=== PATIENT | female | born 1940 | race Caucasian/White ===

== ENCOUNTER 2017-01-24 06:36 | Day surgery (SDC) | payer MEDICARE, BC ==
[2017-01-24] MEDS ORDERED: Lidocaine 1% with EPINEPHrine 1:100,000 50 ML MDV ONE (06:47)
[2017-01-24] MEDS ORDERED: Bupivacaine 0.5% 50 ML MDV ONE (06:47)
[2017-01-24] MEDS ORDERED: metroNIDAZOLE/Normal Saline 500 MG in Premix Bag 1 BAG IV ONE (07:30)
[2017-01-24] MEDS: Sodium Chloride 0.9% 1,000 ML IV SCH ×3 (07:35→18:46)
[2017-01-24] MEDS ORDERED: Rocuronium 50 MG/5 ML Vial ONE (07:38)
[2017-01-24] MEDS ORDERED: Propofol 200 MG/20 ML SDV ONE (07:38)
[2017-01-24] MEDS ORDERED: Dexamethasone 4 MG/ML SDV ONE (07:38)
[2017-01-24] MEDS ORDERED: Neostigmine Methylsulfate 1 MG/ML 5 ML Syringe ONE (07:38)
[2017-01-24] MEDS ORDERED: Succinylcholine/Normal Saline 200 MG/10 ML Syringe ONE (07:38)
[2017-01-24] MEDS ORDERED: fentaNYL 250 MCG/5 ML SDV ONE (07:38)
[2017-01-24] MEDS ORDERED: Ondansetron 4 MG/2 ML SDV ONE (07:38)
[2017-01-24] MEDS: ceFAZolin 2 GM in Premix Bag 1 BAG IV ONE ×2 (08:05→11:25)
[2017-01-24] MEDS ORDERED: Benzocaine/Cetylpyridinium/Menthol Lozenge MUCMEM PRN (09:24)
[2017-01-24] MEDS ORDERED: diphenhydrAMINE 50 MG/ML SDV IVPUSH PRN (09:24)
[2017-01-24] MEDS ORDERED: Docusate Sodium 100 MG Cap PO PRN (09:24)
[2017-01-24] MEDS ORDERED: Zolpidem 5 MG Tab PO PRN (09:24)
[2017-01-24] MEDS ORDERED: Bisacodyl 5 MG Tab PO PRN (09:24)
[2017-01-24] MEDS ORDERED: hydrOXYzine HCl 50 MG/ML SDV IM ONE ×2 (09:45→09:50)
[2017-01-24] MEDS ORDERED: fentaNYL 100 MCG/2 ML SDV IVPUSH ONE ×2 (10:05→10:30)
[2017-01-24] MEDS ORDERED: Acetaminophen 1,000 MG in Premix Bag 1 BAG IV ONE (10:30)
[2017-01-24] MEDS ORDERED: fentaNYL 100 MCG/2 ML SDV IVPUSH PRN (10:30)
--- NOTE | 2017-01-24 11:01 | OR ---
DATE OF PROCEDURE: 01/24/2017 PROCEDURE: Laparoscopic cholecystectomy. PREOPERATIVE DIAGNOSIS: Acute and chronic cholecystitis/cholelithiasis. POSTOPERATIVE DIAGNOSIS: Acute and chronic cholecystitis/cholelithiasis. COMPLICATIONS: None. MED SPA MANAGER: None. ANESTHESIA: General/local. INDICATIONS: A 76-year-old female with right upper quadrant abdominal pain associated with nausea. Risks, benefits, alternatives, and limitations including, but not limited to infection, bleeding, and perforation of abdominal structures were explained to the patient. We also discussed cystic duct leaks, common bile duct injuries, and the possibility of open surgery. The patient understands these risks and wished to proceed. PROCEDURE IN DETAIL: The patient was placed in supine position. The abdomen was prepped and draped. A supraumbilical curvilinear incision was made in the midline and abdomen was entered without abnormality. After the drop test was performed, this was reviewed, during insufflation and entering with an Optiview trocar. No evidence of abnormalities were noted. Additional 10 and two 5 mm ports were entered under direct visualization. The gallbladder was retracted cephalad, and the infundibulum retracted inferolaterally. A "clear view" of the gallbladder would eventually be obtained for the single pulsatile structure in the gallbladder and a single nonpulsatile structure in the gallbladder. The duct and artery were clipped and subsequently transected. Due to the patient's slightly larger than clip size cystic duct, this was clipped additionally x2. Of note, at the end of the case, this was inspected and no evidence of bile leak was noted The remaining one-third of the gallbladder was removed off the gallbladder bed without difficulty. This was delivered via muscle-spreading technique into the upper port. The liver bed was inspected for bleeding, which was minimum and was controlled with electrocautery. The abdomen was reinspected for abnormality, which there was none. The air was removed. The wounds were closed with 3-0 Vicryl and 4-0 Vicryl interrupted running fashion. Dermabond was applied. The patient tolerated the procedure well. Hiren Cruz MD /[id number]
[2017-01-24] MEDS: Acetaminophen/HYDROcodone 325-10 MG Tab PO PRN ×2 (14:26→20:02)
[2017-01-24] MEDS ORDERED: Ondansetron 4 MG Tab.DIS PO PRN (18:21)
[2017-01-25] MEDS: Acetaminophen/HYDROcodone 325-10 MG Tab PO PRN ×2 (02:44→06:39)
[2017-01-25 07:07] VITALS: BP 106/64
--- NOTE | 2017-02-05 08:06 | DISCH ---
DISCHARGE DIAGNOSIS: Status post laparoscopic cholecystectomy. HOSPITAL COURSE: A pleasant 76-year-old female, who underwent uneventful laparoscopic cholecystectomy. Prior to discharge, her pain was well controlled. She had no nausea, vomiting, shortness of breath, or chest pain. FOLLOWUP: Follow up with Surgery in 7 to 14 days. DISCHARGE MEDICATIONS: Please see MAR. Additional consultations during this hospitalization: None.
== END 2017-01-24 21:21 | disposition home or self-care (01) ==
LOC: JP.SDS 06:36 → JP.MS 11:22 → UNDOADMOB 11:22 → JP.SDS 21:21 → UNDODISOB 01-25 09:25
PROVIDERS: ATTEND Surgery
DX: K80.10 Calculus of gallbladder with chronic cholecystitis without obstruction (principal); I10 Essential (primary) hypertension; J44.9 Chronic obstructive pulmonary disease, unspecified; E03.9 Hypothyroidism, unspecified; E78.5 Hyperlipidemia, unspecified; Z88.8 Allergy status to other drugs, medicaments and biological substances; E55.9 Vitamin D deficiency, unspecified; Z98.84 Bariatric surgery status; Z95.5 Presence of coronary angioplasty implant and graft; Z87.891 Personal history of nicotine dependence
CPT/HCPCS: 47562; 88304; A9270; J0131; J0690; J1100; J1200; J2405; J2704; J3010; J3410; J7040; 36415; 80053; 85025

== ENCOUNTER 2017-02-26 07:24 | Emergency (ER) | payer MEDICARE, BC ==
[2017-02-26 07:42] VITALS: BP 174/77
--- NOTE | 2017-02-26 08:46 | EDM.PDOC ---
ED HPI GENERAL MEDICAL PROBLEM - General Chief Complaint: General Stated Complaint: BODY ACHES/VOMITING/HEADACHE Time Seen by Provider: 02/26/17 08:37 Source of Information: Reports: Patient, Family, RN Notes Reviewed History Limitations: Reports: No Limitations - History of Present Illness INITIAL COMMENTS - FREE TEXT/NARRATIVE: 76-year-old female presents emergency department today with complaint of body aches and fever she also has a rash she does admit being bit by a tick on her right leg about 2 weeks ago Generalized Pain Score (Numeric/FACES): 6 - Related Data Allergies Allergy/AdvReac Type Severity Reaction Status Date / Time celecoxib [From Celebrex] AdvReac Nausea and Verified 02/26/17 08:20 Vomiting Home Meds: Home Meds Biotin 5,000 mcg PO DAILY 07/13/15 [History] Ca Carbonate/Vitamin D3/Vit K [Calcium + D Soft Chewable Tab] 1 tab PO BID 07/13 [History] Cholecalciferol (Vitamin D3) [Vitamin D3] 2,000 unit PO DAILY 07/13/15 [History] Cyanocobalamin (Vitamin B-12) [Vitamin B-12] 1,000 mcg SL DAILY 07/13/15 [ History] Fluticasone Propionate [Flonase] 1 spray NS DAILY PRN 07/13/15 [History] Levothyroxine Sodium [Synthroid] 112 mcg PO ACBREAKFAST 07/13/15 [History] Lidocaine 5% 1 applic TOP BID 07/13/15 [History] Magnesium Oxide [Magnesium] 400 mg PO DAILY 07/13/15 [History] Multivitamin [Multi-Day Vitamins] 1 tab PO BID 07/13/15 [History] Vitamin B Complex [B Complex] 1 tab PO DAILY 07/13/15 [History] Pramipexole [Mirapex] 2 mg PO BEDTIME 12/11/15 [History] Tamsulosin HCl [Flomax] 0.4 mg PO DAILY #14 cap.er.24h 12/15/15 [Rx] Docusate Sodium 100 mg PO DAILY PRN 01/22/17 [History] Ibuprofen 400 mg PO Q6H 01/22/17 [History] Polyethylene Glycol 3350 [MiraLAX] 17 gm PO DAILY 01/22/17 [History] Potassium Citrate [Urocit-K] 20 meq PO TID 01/22/17 [History] traMADol [Ultram] 50 mg PO Q6H PRN 01/22/17 [History] Past Medical History HEENT History: Reports: Cataract, Hard of Hearing, Impaired Vision, Sinusitis Cardiovascular History: Reports: Hypertension Respiratory History: Reports: COPD Gastrointestinal History: Reports: Chronic Constipation Genitourinary History: Reports: Renal Calculus Other Genitourinary History: new diagnosis 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 Vitamin D Oncologic (Cancer) History: Reports: Leukemia Other Oncologic History: CLL Dermatologic History: Reports: Other (See Below) Other Dermatologic History: left ear cyst - Infectious Disease History Infectious Disease History: Reports: Chicken Pox, Measles, Mumps, Shingles - Past Surgical History HEENT Surgical History: Reports: Cataract Surgery, Tonsillectomy Cardiovascular Surgical History: Reports: None GI Surgical History: Reports: Appendectomy, Bariatric Procedure, Colonoscopy, EGD, Esophageal Dilatation Female Surgical History: Reports: Breast Biopsy, Kidney stone extraction, Ureteral Stent Oncologic Surgical History: Reports: None Dermatological Surgical History: Reports: Other (See Below) Social & Family History - Tobacco Use Smoking Status *Q: Former Smoker Years of Tobacco use: 40 Packs/Tins Daily: 1 Used Tobacco, but Quit: Yes Month Tobacco Last Used: 30 years ago Second Hand Smoke Exposure: No - Caffeine Use Caffeine Use: Reports: Coffee, Tea - Recreational Drug Use Recreational Drug Use: No - Living Situation & Occupation Living situation: Reports: Occupation: Retired ED ROS GENERAL - Review of Systems Review Of Systems: See Below Constitutional: Reports: Fever, Chills HEENT: Reports: Eye Discharge Respiratory: Reports: No Symptoms Cardiovascular: Reports: No Symptoms GI/Abdominal: Reports: No Symptoms : Reports: No Symptoms Musculoskeletal: Reports: Muscle Pain (Body aches) Skin: Reports: Rash Neurological: Reports: No Symptoms ED EXAM, GENERAL - Physical Exam Exam: See Below Free Text/Narrative:: General: Female, not in any distress, alert and oriented x3 HEENT: head is atraumatic normocephalic, eyes pupils equal round reactive to light, sclera clear no conjunctivitis appreciated. Ears tympanic membranes clear and regan landmarks and light reflex are present bilaterally canals are clear. Nose no septal deviation, nares are clear, no blood present. Mouth mucosa is moist and pink no erythema or exudate noted in soft palate, tongue is midline uvula is midline, dentition is intact. Neck: Supple no thyromegaly no tracheal deviation. Nodes: Cervical nodes subclavicular nodes nontender no palpable lymphadenopathy noted. Lungs: clear to auscultation bilaterally with symmetrical respirations, no adventitious noise appreciated. CV: Regular rate and rhythm S1 and S2 appreciated no murmurs rubs or gallops noted. Abdomen: Soft, nontender, no palpable masses or organomegaly appreciated, no distention no guarding bowel sounds are present, . Neuro: Cranial nerves II through XII grossly intact Skin: She has a bull's-eye type rash on her abdomen consistent with erythema migrans Course - Vital Signs Last Recorded V/S: Last Vital Signs Temp 97.3 F 02/26/17 08:13 Pulse 77 02/26/17 08:13 Resp 14 02/26/17 08:13 BP 174/77 H 02/26/17 08:13 Pulse Ox 98 02/26/17 08:13 Departure - Departure Time of Disposition: 08:45 Disposition: Home, Self-Care 01 Condition: Good Clinical Impression: Erythema migrans (Lyme disease) Tick bite Qualifiers: Encounter type: initial encounter Qualified Code(s): W57.XXXA - Bitten or stung by nonvenomous insect and other nonvenomous arthropods, initial encounter - Discharge Information Forms: ED Department Discharge Additional Instructions: Take full course of antibiotics, Please followup with your primary care provider in 7-10 days if not better, please call return to the emergency department with worsening of symptoms. - Assessment/Plan Plan: Assessment Acuity = acute Site and laterality = suspicious for Lyme disease with erythema migrans rash on her abdomen complicated patient with hypertension and hypothyroidism Etiology = tickborne illness Manifestations = fever, myalgias Location of injury = Home Lab values = none Plan Elected to treat empirically doxycycline 100 mg by mouth twice a day 21 days follow-up with primary care in 7-10 days for reevaluation Patient was in agreement with the plan all questions were answered, they were instructed to return to the emergency department or call for worsening symptoms. This note was dictated using [employer] voice recognition software please call with any questions.
[2017-02-26] MEDS ORDERED: Doxycycline 100 MG Cap PO ONE (09:10)
== END 2017-02-26 09:14 | disposition home or self-care (01) ==
LOC: JP.ED 07:24
DX: A69.20 Lyme disease, unspecified (principal); T14.8 Other injury of unspecified body region; E03.9 Hypothyroidism, unspecified; I10 Essential (primary) hypertension; J44.9 Chronic obstructive pulmonary disease, unspecified; F41.9 Anxiety disorder, unspecified; Z98.49 Cataract extraction status, unspecified eye; Z87.890 Personal history of sex reassignment; Z98.84 Bariatric surgery status; Z90.49 Acquired absence of other specified parts of digestive tract; Z79.899 Other long term (current) drug therapy; Z88.1 Allergy status to other antibiotic agents; W57.XXXA Bitten or stung by nonvenomous insect and other nonvenomous arthropods, initial encounter
CPT/HCPCS: 99284; A9270; 99283

== ENCOUNTER 2020-02-08 08:49 | Day surgery (SDC) | payer MEDICARE, BC ==
[2020-02-08] MEDS: Lactated Ringers 1,000 ML IV SCH (09:44)
[2020-02-08] MEDS ORDERED: Nozin Nasal Sanitizer NASBOTH ONE (10:15)
[2020-02-08] MEDS ORDERED: Midazolam 1 MG/ML 2 ML SDV ONE (10:26)
[2020-02-08] MEDS ORDERED: fentaNYL 100 MCG/2 ML SDV ONE (10:26)
[2020-02-08] MEDS ORDERED: Propofol 200 MG/20 ML SDV ONE ×2 (10:26→14:48)
[2020-02-08] MEDS ORDERED: ceFAZolin 1 GM in Premix Bag 1 BAG IV ONE (10:30)
[2020-02-08] MEDS ORDERED: Lidocaine 1% 50 ML MDV ONE (10:40)
[2020-02-08] MEDS ORDERED: Bupivacaine 0.25% 10 ML SDV ONE (15:12)
[2020-02-08] MEDS ORDERED: Morphine 2 MG/ML Syringe IV ONE ×2 (15:45→17:15)
[2020-02-08] MEDS ORDERED: Magnesium Hydroxide 400 MG/5 ML Susp 30 ML Cup PO PRN (17:13)
[2020-02-08] MEDS ORDERED: Ondansetron 4 MG Tab.DIS PO PRN (17:13)
[2020-02-08] MEDS ORDERED: Morphine 2 MG/ML Syringe SUBCUT PRN (17:13)
[2020-02-08] MEDS ORDERED: Polyethylene Glycol 3350 Powder 17 GM Packet PO PRN (17:19)
[2020-02-08] MEDS: Acetaminophen/oxyCODONE 325-5 MG Tab PO PRN (17:58)
[2020-02-08] MEDS ORDERED: Labetalol 100 MG/20 ML MDV IVPUSH ONE (19:02)
[2020-02-08] MEDS ORDERED: HYDROmorphone 0.5 MG/0.5 ML Syringe IVPUSH PRN (19:05)
[2020-02-08] MEDS ORDERED: Labetalol 20 MG/4 ML Syringe IVPUSH ONE (19:29)
[2020-02-08] MEDS: Cyclobenzaprine 10 MG Tab PO PRN (19:40)
[2020-02-08] MEDS ORDERED: PRAMIPEXOLE PO SCH (21:00)
[2020-02-08] MEDS: traMADol 50 MG Tab PO SCH (21:35)
[2020-02-08] MEDS: Pramipexole 0.5 MG Tab PO SCH (21:36)
[2020-02-08] MEDS: Nozin Nasal Sanitizer NASBOTH SCH (21:41)
[2020-02-09] MEDS: Cyclobenzaprine 10 MG Tab PO PRN ×3 (02:18→15:28)
[2020-02-09] MEDS: Lactated Ringers 1,000 ML IV SCH (02:29)
[2020-02-09] MEDS: traMADol 50 MG Tab PO SCH ×4 (03:40→21:14)
[2020-02-09] MEDS: Acetaminophen/oxyCODONE 325-5 MG Tab PO PRN ×2 (06:00→12:07)
[2020-02-09] MEDS: Levothyroxine 112 MCG Tab PO SCH (07:44)
[2020-02-09] MEDS: Docusate Sodium 100 MG Cap PO SCH (08:57)
[2020-02-09] MEDS: Nozin Nasal Sanitizer NASBOTH SCH ×2 (08:57→21:11)
--- NOTE | 2020-02-09 17:52 | PCM.SURGPN ---
- General Info Date of Service: 02/09/20 Date of Surgery/Procedure: 02/08/20 POD#: 1 Functional Status: Reports: Pain Controlled, Tolerating Diet, Ambulating, Urinating - Review of Systems General: Reports: No Symptoms HEENT: Reports: No Symptoms Pulmonary: Reports: No Symptoms Cardiovascular: Reports: No Symptoms Gastrointestinal: Reports: No Symptoms Genitourinary: Reports: No Symptoms Musculoskeletal: Reports: Leg Pain Skin: Reports: No Symptoms Neurological: Reports: No Symptoms Psychiatric: Reports: No Symptoms - Patient Data Vitals - Most Recent: Last Vital Signs Temp 37.6 C 02/09/20 14:55 Pulse 88 02/09/20 14:55 Resp 18 02/09/20 14:55 BP 128/44 L 02/09/20 14:55 Pulse Ox 94 L 02/09/20 14:55 Weight - Most Recent: 60.781 kg I&O - Last 24 Hours: Intake & Output 02/09/20 02/09/20 02/09/20 06:59 14:59 22:59 Intake Total 1036 617 500 Output Total 425 700 Balance 611 -83 500 Lab Results Last 24 Hrs: Laboratory Results - last 24 hr 02/09/20 Range/Units 04:05 WBC 19.9 H (4.5-11.0) K/uL RBC 3.67 (3.30-5.50) M/uL Hgb 10.7 L (12.0-15.0) g/dL Hct 34.5 L (36.0-48.0) % MCV 94 (80-98) fL MCH 29 (27-31) pg MCHC 31 L (32-36) % Plt Count 172 (150-400) K/uL Med Orders - Current: Current Medications Bandage/Support Products ( Nasal Mercerizing Range Feeder) 1 applic NASBOTH BID [facility] Stop: 02/15/20 21:01 Last Admin: 02/09/20 08:57 Dose: 1 applic Cyclobenzaprine HCl (Flexeril) 10 mg PO Q6H PRN PRN Reason: Muscle Spasm Last Admin: 02/09/20 15:28 Dose: 10 mg Docusate Sodium (Colace) 100 mg PO DAILY [facility] Last Admin: 02/09/20 08:57 Dose: 100 mg Hydromorphone HCl (Dilaudid) 0.5 mg IVPUSH Q1H PRN PRN Reason: Breakthrough Pain Lactated Ringer's (Ringers, Lactated) 1,000 mls @ 75 mls/hr IV ASDIRECTED [facility] Last Admin: 02/09/20 02:29 Dose: 75 mls/hr Levothyroxine Sodium (Levothyroxine) 112 mcg PO ACBREAKFAST [facility] Last Admin: 02/09/20 07:44 Dose: 112 mcg Magnesium Hydroxide (Milk Of Magnesia) 30 ml PO Q6H PRN PRN Reason: Stool Softener Ondansetron HCl (Zofran Odt) 4 mg PO Q6H PRN PRN Reason: Nausea/Vomiting Oxycodone/Acetaminophen (Percocet 325-5 Mg) 1 - 2 tab PO Q4H PRN PRN Reason: Pain (moderate 4-6) Last Admin: 02/09/20 12:07 Dose: 1 tab Polyethylene Glycol (Miralax) 17 gm PO DAILY PRN PRN Reason: Constipation Pramipexole Dihydrochloride (Mirapex) 3 mg PO BEDTIME [facility] Last Admin: 02/08/20 21:36 Dose: 3 mg Tramadol HCl (Ultram) 50 mg PO Q6H [facility] Last Admin: 02/09/20 15:28 Dose: 50 mg Discontinued Medications Bandage/Support Products ( Nasal Mercerizing Range Feeder) 1 applic NASBOTH ONETIME ONE Stop: 02/08/20 10:16 Last Admin: 02/08/20 09:52 Dose: 1 applic Bupivacaine HCl (Sensorcaine-Mpf 0.25%) Confirm Administered Dose 20 ml .ROUTE .STK-MED ONE Stop: 02/08/20 15:13 Last Admin: 02/08/20 15:15 Dose: 20 ml Fentanyl (Sublimaze) Confirm Administered Dose 100 mcg .ROUTE .STK-MED ONE Stop: 02/08/20 10:27 Cefazolin Sodium/Dextrose 1 gm (/ Premix) 50 mls @ 100 mls/hr IV ONETIME ONE Stop: 02/08/20 10:59 Last Admin: 02/08/20 13:49 Dose: 100 mls/hr Labetalol HCl (Normodyne) 20 mg IVPUSH ONETIME ONE; Protocol Stop: 02/08/20 19:03 Last Admin: 02/09/20 02:09 Dose: Not Given Labetalol HCl (Normodyne) 20 mg IVPUSH NOW ONE; Protocol Stop: 02/08/20 19:30 Last Admin: 02/08/20 19:47 Dose: 12.5 mg Lidocaine HCl (Xylocaine 1%) Confirm Administered Dose 50 ml .ROUTE .STK-MED ONE Stop: 02/08/20 10:41 Midazolam HCl (Versed 1 Mg/Ml) Confirm Administered Dose 2 mg .ROUTE .STK-MED ONE Stop: 02/08/20 10:27 Morphine Sulfate (Morphine) 2 mg IV ONETIME ONE Stop: 02/08/20 15:46 Last Admin: 02/08/20 15:42 Dose: 2 mg Morphine Sulfate (Morphine) 2 mg IV ONETIME ONE Stop: 02/08/20 17:16 Last Admin: 02/08/20 17:25 Dose: 2 mg Morphine Sulfate (Morphine) 1 mg SUBCUT Q1H PRN PRN Reason: Breakthrough Pain Propofol (Diprivan 20 Ml) Confirm Administered Dose 200 mg .ROUTE .STK-MED ONE Stop: 02/08/20 10:27 Propofol (Diprivan 20 Ml) Confirm Administered Dose 200 mg .ROUTE .STK-MED ONE Stop: 02/08/20 14:49 - Exam Wound/Incisions: Dressing Dry and Intact General: Alert, Oriented HEENT: Pupils Equal, Pupils Reactive, EOMI, Mucous Membr. Moist/[place] Neck: Supple Lungs: Clear to Auscultation, Normal Respiratory Effort Cardiovascular: Regular Rate, Regular Rhythm GI/Abdominal Exam: Normal Bowel Sounds, Soft, Non-Tender, No Distention Extremities: Leg Pain, Limited Range of Motion Skin: Warm, Dry Neurological: No New Focal Deficit Psy/Mental Status: Normal Affect Sepsis Event Note - Evaluation Sepsis Screening Result: Sepsis Risk - Focused Exam Vital Signs: Vital Signs Temp Pulse Resp BP Pulse Ox 02/09/20 14:55 37.6 C 88 18 128/44 L 94 L 02/09/20 11:00 37.7 C 81 18 155/70 H 100 02/09/20 08:00 37.5 C 106 H 18 160/70 H 94 L Date Exam was Performed: 02/09/20 Time Exam was Performed: 17:47 - Problem List & Annotations (1) Hip pain, left SNOMED Code(s): 81583787 Code(s): M25.552 - PAIN IN LEFT HIP Status: Acute Current Visit: No (2) Tear of gluteus medius tendon SNOMED Code(s): 073118049 Code(s): S76.019A - STRAIN OF MUSCLE, FASCIA AND TENDON OF UNSP HIP, INIT ENCNTR Status: Acute Current Visit: No Annotation/Comment:: partial Qualifiers: Encounter type: subsequent encounter Laterality: left Qualified Code(s): S76.012D - Strain of muscle, fascia and tendon of left hip, subsequent encounter (3) Trochanteric bursitis SNOMED Code(s): 7765390 Code(s): M70.60 - TROCHANTERIC BURSITIS, UNSPECIFIED HIP Status: Acute Current Visit: No Qualifiers: Laterality: left - Problem List Review Problem List Initiated/Reviewed/Updated: Yes - My Orders Last 24 Hours: Active Orders 24 hr Category Date Time Status Patient Status [ADT] Routine ADT 02/08/20 17:13 Active Ambulate [RC] PER UNIT ROUTINE Care 02/08/20 17:13 Active Antiembolic Devices [RC] .Routine Care 02/08/20 17:15 Active Head of Bed Elevation [RC] ASDIRECTED Care 02/08/20 17:13 Active Intake and Output [RC] PER UNIT ROUTINE Care 02/08/20 17:13 Active Neurovascular Check [RC] BID Care 02/08/20 17:13 Active Notify Provider Intake and Out [RC] ASDIRECTED Care 02/08/20 17:13 Active Notify Provider Vital Signs [RC] ASDIRECTED Care 02/08/20 17:13 Active Oxygen Therapy [RC] PRN Care 02/08/20 17:13 Active Pneumonia Education [RC] UPON Care 02/08/20 17:13 Active Pulse Oximetry [RC] INTERMITTENT Care 02/08/20 17:13 Active RT Incentive Spirometry [RC] Q1HWA Care 02/08/20 17:13 Active Up to Chair [RC] QID Care 02/08/20 17:13 Active VTE/DVT Education [RC] Click to Edit Care 02/08/20 17:15 Active Vital Signs [RC] PER UNIT ROUTINE Care 02/08/20 17:13 Active Wound Care [RC] Q12H Care 02/08/20 17:13 Active PT Evaluation and Treatment [CONS] Routine Cons 02/08/20 17:13 Active PT Evaluation and Treatment [CONS] Routine Cons 02/08/20 17:13 Active Regular Diet [DIET] Diet 02/08/20 Dinner Active Acetaminophen/oxyCODONE [Percocet 325-5 MG] Med 02/08/20 17:20 Active 1 - 2 tab PO Q4H PRN Cyclobenzaprine [Flexeril] Med 02/08/20 19:05 Active 10 mg PO Q6H PRN Docusate Sodium [Colace] Med 02/09/20 09:00 Active 100 mg PO DAILY HYDROmorphone [Dilaudid] Med 02/08/20 19:05 Active 0.5 mg IVPUSH Q1H PRN Levothyroxine Med 02/09/20 07:30 Active 112 mcg PO ACBREAKFAST Magnesium Hydroxide [Milk of Magnesia] Med 02/08/20 17:13 Active 30 ml PO Q6H PRN Nozin [ Nasal Mercerizing Range Feeder] Med 02/08/20 21:00 Active 1 applic NASBOTH BID Ondansetron [Zofran ODT] Med 02/08/20 17:13 Active 4 mg PO Q6H PRN Pramipexole [Mirapex] Med 02/08/20 21:00 Active 3 mg PO BEDTIME polyethylene glycoL 3350 [MiraLAX] Med 02/08/20 17:19 Active 17 gm PO DAILY PRN traMADol [Ultram] Med 02/08/20 22:00 Active 50 mg PO Q6H Antiembolic Hose [OM.PC] Per Unit Routine Oth 02/08/20 17:13 Ordered Convert IV to Saline Lock [OM.PC] Routine Oth 02/09/20 11:25 Ordered DME for Inpatients [OM.PC] Routine Oth 02/08/20 17:13 Ordered DVT/VTE Prophylaxis Reflex [OM.PC] Routine Oth 02/08/20 17:13 Ordered Ice Therapy [OM.PC] Per Unit Routine Oth 02/08/20 17:13 Ordered Oral Care [OM.PC] Routine Oth 02/08/20 17:13 Ordered Sequential Compression Device [OM.PC] Routine Oth 02/08/20 17:13 Ordered Weight bearing status [OM.PC] Routine Oth 02/08/20 17:13 Ordered Resuscitation Status Routine Resus Stat 02/08/20 17:13 Ordered Medication Orders Bandage/Support Products ( Nasal Mercerizing Range Feeder) 1 applic NASBOTH BID [facility] Stop: 02/15/20 21:01 Last Admin: 02/09/20 08:57 Dose: 1 applic Admin: 02/08/20 21:41 Dose: 1 applic Cyclobenzaprine HCl (Flexeril) 10 mg PO Q6H PRN PRN Reason: Muscle Spasm Last Admin: 02/09/20 15:28 Dose: 10 mg Admin: 02/09/20 08:57 Dose: 10 mg Admin: 02/09/20 02:18 Dose: 10 mg Admin: 02/08/20 19:40 Dose: 10 mg Docusate Sodium (Colace) 100 mg PO DAILY [facility] Last Admin: 02/09/20 08:57 Dose: 100 mg Hydromorphone HCl (Dilaudid) 0.5 mg IVPUSH Q1H PRN PRN Reason: Breakthrough Pain Lactated Ringer's (Ringers, Lactated) 1,000 mls @ 75 mls/hr IV ASDIRECTED [facility] Last Admin: 02/09/20 02:29 Dose: 75 mls/hr Infusion: 02/08/20 23:04 Dose: 75 mls/hr Admin: 02/08/20 09:44 Dose: 75 mls/hr Levothyroxine Sodium (Levothyroxine) 112 mcg PO ACBREAKFAST [facility] Last Admin: 02/09/20 07:44 Dose: 112 mcg Magnesium Hydroxide (Milk Of Magnesia) 30 ml PO Q6H PRN PRN Reason: Stool Softener Ondansetron HCl (Zofran Odt) 4 mg PO Q6H PRN PRN Reason: Nausea/Vomiting Oxycodone/Acetaminophen (Percocet 325-5 Mg) 1 - 2 tab PO Q4H PRN PRN Reason: Pain (moderate 4-6) Last Admin: 02/09/20 12:07 Dose: 1 tab Admin: 02/09/20 06:00 Dose: 1 tab Admin: 02/08/20 17:58 Dose: 2 tab Polyethylene Glycol (Miralax) 17 gm PO DAILY PRN PRN Reason: Constipation Pramipexole Dihydrochloride (Mirapex) 3 mg PO BEDTIME [facility] Last Admin: 02/08/20 21:36 Dose: 3 mg Tramadol HCl (Ultram) 50 mg PO Q6H [facility] Last Admin: 02/09/20 15:28 Dose: 50 mg Admin: 02/09/20 08:59 Dose: 50 mg Admin: 02/09/20 03:40 Dose: 50 mg Admin: 02/08/20 21:35 Dose: 50 mg - Assessment Assessment (Free Text/Narrative):: Hypertensive post op, responded to labetalol, difficulty with transfer out of bed, better once up and walking, pain fairly well controlled - Plan Plan (Free Text/Narrative):: Work on transfers with PT and anticipate home tomorrow, BP has been ok today
[2020-02-09] MEDS: Pramipexole 0.5 MG Tab PO SCH (21:12)
[2020-02-10] MEDS: traMADol 50 MG Tab PO SCH ×2 (03:09→09:34)
[2020-02-10] MEDS: Levothyroxine 112 MCG Tab PO SCH (07:46)
[2020-02-10] MEDS: Acetaminophen/oxyCODONE 325-5 MG Tab PO PRN (07:50)
[2020-02-10] MEDS: Nozin Nasal Sanitizer NASBOTH SCH (09:34)
[2020-02-10] MEDS: Docusate Sodium 100 MG Cap PO SCH (09:34)
[2020-02-10 11:09] VITALS: BP 119/51; PULSE 88
--- NOTE | 2020-02-10 12:27 | PCM.DCSUM1 ---
Discharge Summary - Hospital Course HPI Initial Comments: 79 year old female with progressive left hip pain. Has failed injections and conservative treatment. Admitted after evaluation and repair of abductor tendon tear, trochanteric bursectomy, IT band release and exploration of gluteus minimus lipomatous changes. Had significant increase in BP post op that responded to medication. 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 Diagnosis: Stroke: No Modified [place] Scale: No Symptoms at All Modified [place] Scale Score: 0 - Discharge Data Discharge Date: 02/10/20 Discharge Disposition: Home, Self-Care 01 Condition: Good - Referral to Home Health Date of Face to Face Encounter: 02/10/20 Primary Care Physician: Antwon Meredith MD - Discharge Diagnosis/Problem(s) (1) Hip pain, left SNOMED Code(s): 57574127 ICD Code: M25.552 - PAIN IN LEFT HIP Status: Acute Current Visit: No (2) Tear of gluteus medius tendon SNOMED Code(s): 225712889 ICD Code: S76.019A - STRAIN OF MUSCLE, FASCIA AND TENDON OF UNSP HIP, INIT ENCNTR Status: Acute Current Visit: No Problem Details: partial Qualifiers: Encounter type: subsequent encounter Laterality: left Qualified Code(s): S76.012D - Strain of muscle, fascia and tendon of left hip, subsequent encounter (3) Trochanteric bursitis SNOMED Code(s): 2594699 ICD Code: M70.60 - TROCHANTERIC BURSITIS, UNSPECIFIED HIP Status: Acute Current Visit: No Qualifiers: Laterality: left - Patient Summary/Data Operative Procedure(s) Performed: Repair of Gluteus Medius tendon, bursectomy, TI band release and exploration of G Minimus muscle Consults: Consultations 02/08/20 17:13 PT Evaluation and Treatment [CONS] Routine Please Evaluate and Treat. PT Reason for Consult: Ambulation Discharge Disposition: Home w Home Health Special Instructions: WBAT This query below is only for informational purposes and is not editable. PT Evaluation and Treatment [CONS] Routine Please Evaluate and Treat. PT Reason for Consult: Post op Ortho Surgery Hip Pending Discharge: Yes, 2- -3 days Special Instructions: Schedule first outpatient P.T. appointment 3 - 5 days post discharge This query below is only for informational purposes and is not editable. Hospital Course: Tolerated surgery well but had significant increase if BP post op. BP responded to medication. Limited mobility POD#1 and was able to work with PT and improve transfers and ambulation by POD #2. She is safe for discharge to home. May continue WBAT on left. Dressings were changed POD #2, no complications. Setting up outpatient PT. Follow up in approx 2 weeks. - Patient Instructions Diet: Usual Diet as Tolerated Activity: Apply Ice, As Tolerated, Full Weight Bearing Driving: Do Not Drive Showering/Bathing: May Shower Wound/Incision Care: Keep Operative Site/Wound Site Clean and Dry Notify Provider of: Fever, Increased Pain, Swelling and Redness, Drainage, Nausea and/or Vomiting - Discharge Plan *PRESCRIPTION DRUG MONITORING PROGRAM REVIEWED*: No *COPY OF PRESCRIPTION DRUG MONITORING REPORT IN PATIENT NGOC: No Prescriptions/Med Rec: Cyclobenzaprine [Flexeril] 10 mg PO TID PRN #20 tab PRN Reason: Muscle Spasm traMADol [Ultram] 50 mg PO Q4H PRN #40 tab PRN Reason: Pain Home Medications: Home Meds Calcium Carb/Vitamin D3/Vit K1 [Calcium + D Soft Chewable Tab] 1 tab PO BID 07/13/15 [History] Levothyroxine Sodium [Synthroid] 112 mcg PO ACBREAKFAST 07/13/15 [History] Lidocaine 5% 1 applic TOP BID 07/13/15 [History] Magnesium Oxide [Magnesium] 400 mg PO DAILY 07/13/15 [History] Multivitamin [Multi-Day Vitamins] 1 tab PO BID 07/13/15 [History] Vitamin B Complex [B Complex] 1 tab PO DAILY 07/13/15 [History] Pramipexole [Mirapex] 3 mg PO BEDTIME 12/11/15 [History] Docusate Sodium 100 mg PO DAILY 01/22/17 [History] Ibuprofen 400 mg PO Q6H 01/22/17 [History] Polyethylene Glycol 3350 [MiraLAX] 17 gm PO DAILY PRN 01/22/17 [History] traMADol [Ultram] 50 mg PO Q6H PRN 01/22/17 [History] Ergocalciferol (Vitamin D2) [Vitamin D2] 50,000 unit PO .Sat09/20/17 [History] Iron,Carbonyl/Ascorbic Acid [Iron 100-Vitamin C Tablet] 1 tab PO BID 09/20/17 [History] Cyclobenzaprine [Flexeril] 10 mg PO TID PRN #20 tab 02/10/20 [Rx] traMADol [Ultram] 50 mg PO Q4H PRN #40 tab 02/10/20 [Rx] Oxygen Therapy Mode: Room Air - Discharge Summary/Plan Comment DC Time >30 min.: Yes - General Info Functional Status: Reports: Pain Controlled, Tolerating Diet, Ambulating, Urinating - Review of Systems General: Reports: No Symptoms HEENT: Reports: No Symptoms Pulmonary: Reports: No Symptoms Cardiovascular: Reports: No Symptoms Gastrointestinal: Reports: No Symptoms Genitourinary: Reports: No Symptoms Musculoskeletal: Reports: Other (hip pain) Skin: Reports: No Symptoms Neurological: Reports: No Symptoms Psychiatric: Reports: No Symptoms - Patient Data Vitals - Most Recent: Last Vital Signs Temp 37.2 C 02/10/20 11:00 Pulse 88 02/10/20 11:00 Resp 16 02/10/20 11:00 BP 119/51 L 02/10/20 11:00 Pulse Ox 97 02/10/20 11:00 Weight - Most Recent: 60.781 kg I&O - Last 24 hours: Intake & Output 02/09/20 02/10/20 02/10/20 22:59 06:59 14:59 Intake Total 1550 860 Output Total 350 400 Balance 1200 -400 860 Med Orders - Current: Current Medications Bandage/Support Products ( Nasal Cardboard Cutter) 1 applic NASBOTH BID [facility] Stop: 02/15/20 21:01 Last Admin: 02/10/20 09:34 Dose: 1 applic Documented by: Cyclobenzaprine HCl (Flexeril) 10 mg PO Q6H PRN PRN Reason: Muscle Spasm Last Admin: 02/09/20 15:28 Dose: 10 mg Documented by: Docusate Sodium (Colace) 100 mg PO DAILY [facility] Last Admin: 02/10/20 09:34 Dose: 100 mg Documented by: Hydromorphone HCl (Dilaudid) 0.5 mg IVPUSH Q1H PRN PRN Reason: Breakthrough Pain Lactated Ringer's (Ringers, Lactated) 1,000 mls @ 75 mls/hr IV ASDIRECTED [facility] Last Admin: 02/09/20 02:29 Dose: 75 mls/hr Documented by: Levothyroxine Sodium (Levothyroxine) 112 mcg PO ACBREAKFAST [facility] Last Admin: 02/10/20 07:46 Dose: 112 mcg Documented by: Magnesium Hydroxide (Milk Of Magnesia) 30 ml PO Q6H PRN PRN Reason: Stool Softener Ondansetron HCl (Zofran Odt) 4 mg PO Q6H PRN PRN Reason: Nausea/Vomiting Oxycodone/Acetaminophen (Percocet 325-5 Mg) 1 - 2 tab PO Q4H PRN PRN Reason: Pain (moderate 4-6) Last Admin: 02/10/20 07:50 Dose: 1 tab Documented by: Polyethylene Glycol (Miralax) 17 gm PO DAILY PRN PRN Reason: Constipation Pramipexole Dihydrochloride (Mirapex) 3 mg PO BEDTIME [facility] Last Admin: 02/09/20 21:12 Dose: 3 mg Documented by: Tramadol HCl (Ultram) 50 mg PO Q6H [facility] Last Admin: 02/10/20 09:34 Dose: 50 mg Documented by: Discontinued Medications Bandage/Support Products ( Nasal Cardboard Cutter) 1 applic NASBOTH ONETIME ONE Stop: 02/08/20 10:16 Last Admin: 02/08/20 09:52 Dose: 1 applic Documented by: Bupivacaine HCl (Sensorcaine-Mpf 0.25%) Confirm Administered Dose 20 ml .ROUTE .STK-MED ONE Stop: 02/08/20 15:13 Last Admin: 02/08/20 15:15 Dose: 20 ml Documented by: Fentanyl (Sublimaze) Confirm Administered Dose 100 mcg .ROUTE .STK-MED ONE Stop: 02/08/20 10:27 Cefazolin Sodium/Dextrose 1 gm (/ Premix) 50 mls @ 100 mls/hr IV ONETIME ONE Stop: 02/08/20 10:59 Last Admin: 02/08/20 13:49 Dose: 100 mls/hr Documented by: Labetalol HCl (Normodyne) 20 mg IVPUSH ONETIME ONE; Protocol Stop: 02/08/20 19:03 Last Admin: 02/09/20 02:09 Dose: Not Given Documented by: Labetalol HCl (Normodyne) 20 mg IVPUSH NOW ONE; Protocol Stop: 02/08/20 19:30 Last Admin: 02/08/20 19:47 Dose: 12.5 mg Documented by: Lidocaine HCl (Xylocaine 1%) Confirm Administered Dose 50 ml .ROUTE .STK-MED ONE Stop: 02/08/20 10:41 Last Admin: 02/09/20 22:34 Dose: Not Given Documented by: Midazolam HCl (Versed 1 Mg/Ml) Confirm Administered Dose 2 mg .ROUTE .STK-MED ONE Stop: 02/08/20 10:27 Morphine Sulfate (Morphine) 2 mg IV ONETIME ONE Stop: 02/08/20 15:46 Last Admin: 02/08/20 15:42 Dose: 2 mg Documented by: Morphine Sulfate (Morphine) 2 mg IV ONETIME ONE Stop: 02/08/20 17:16 Last Admin: 02/08/20 17:25 Dose: 2 mg Documented by: Morphine Sulfate (Morphine) 1 mg SUBCUT Q1H PRN PRN Reason: Breakthrough Pain Propofol (Diprivan 20 Ml) Confirm Administered Dose 200 mg .ROUTE .STK-MED ONE Stop: 02/08/20 10:27 Propofol (Diprivan 20 Ml) Confirm Administered Dose 200 mg .ROUTE .STK-MED ONE Stop: 02/08/20 14:49 - Exam General: Reports: Alert, Oriented HEENT: Reports: Pupils Equal, Pupils Reactive, EOMI, Mucous Membr. Moist/Platina Lungs: Reports: Clear to Auscultation, Normal Respiratory Effort Cardiovascular: Reports: Regular Rate, Regular Rhythm GI/Abdominal Exam: Normal Bowel Sounds, Soft, Non-Tender, No Distention (Female) Exam: Deferred Rectal (Female) Exam: Deferred Back Exam: Reports: Normal Inspection Extremities: Limited Range of Motion Skin: Reports: Warm, Dry Wound/Incisions: Reports: Healing Well Neurological: Reports: No New Focal Deficit Psy/Mental Status: Reports: Alert, Normal Affect, Normal Mood
--- NOTE | 2020-02-19 14:04 | OR ---
DATE OF PROCEDURE: 02/08/2020 SURGEON: Oliverio Person MD PREOPERATIVE DIAGNOSES: 1. Abductor tendon tear, left hip. 2. Intramuscular lipoma, gluteus minimus of left hip. POSTOPERATIVE DIAGNOSES: 1. Abductor tendon tear, gluteus medius tendon of left hip. 2. Fatty degeneration, gluteus minimus. PROCEDURE: 1. Repair of gluteus medius tendon. 2. Exploration of gluteus minimus. ANESTHESIA: General. INDICATIONS: Marlene is an 79-year-old female who has had progressive left hip pain for the past month. She has failed conservative treatment with injections, physical therapy, and medications. She has some pain localizing to the lateral aspect of the left hip iliac crest and trochanter as well as some potential cross over from her lumbar spine nerve impingement. MRI of the hip reveals fatty changes within the gluteus medius, which appears to be an intramuscular lipoma and a tear of the tendon at its attachment to the trochanter. She now presents for evaluation of the abductor tendon tear and repair as needed and excision of intramuscular lipoma. Risks, benefits, potential complications of procedure were discussed. DESCRIPTION OF PROCEDURE: After adequate anesthesia was obtained, patient was placed in the lateral decubitus position and bony prominences were well padded. Left hip and leg were then prepped and draped in a sterile fashion. Incision was made over the greater trochanter, carried down to subcutaneous tissues, and hemostasis was obtained with electrocautery. IT band was split in line with its fibers exposing the trochanter. A moderate amount of hypertrophic bursa was present, this was excised. Abductor tendon was evaluated and this revealed an intrasubstance tear in the gluteus medius with some separation from the trochanter. The tear was debrided. The superior aspect of the trochanter and insertion of the tendon was debrided with a rongeur creating a bleeding bed. A Mitek Healix anchor was then placed into the trochanter and sutures were then brought up through the gluteus medius tendon, securing it down onto the bone. The suture was then cut. No other abnormalities were identified. Incision was irrigated. IT band was not repaired directly and a small crystal-shaped section was resected to prevent further friction over the greater trochanter. The skin was then closed with 2-0 Vicryl and a running 3-0 Monocryl and Steri-Strips were applied. Attention was then turned to the superior aspect of the hip where an incision was made along the anterior aspect of the iliac crest. This was carried down to subcutaneous tissues. The fascia of the anterior aspect of the gluteus medius and the gluteus minimus was divided and blunt dissection carried down into the substance of the gluteus minimus. Fatty degenerative changes were noted, but no distinct lipoma was identified. The area was thoroughly explored and no other masses or abnormalities were identified. The wound was then irrigated and the fascia was closed with 0 Vicryl in a running locking fashion. Skin was closed with 2-0 Vicryl and running 3-0 Monocryl. Steri-Strips were applied. Both incisions were then dressed. The patient tolerated procedure well. There were no complications. She was taken from the operating room in stable condition. Oliverio Person MD /[id number]
== END 2020-02-10 15:03 | disposition home or self-care (01) ==
LOC: JP.SDS 08:49 → UNDOADMIN 08:49 → JP.MS 08:49 → UNDODISIN 02-10 15:03 → JP.SDS 02-10 15:03
PROVIDERS: ATTEND Specialist
DX: S76.012A Strain of muscle, fascia and tendon of left hip, initial encounter (principal); M62.89 Other specified disorders of muscle; M70.62 Trochanteric bursitis, left hip; I10 Essential (primary) hypertension; K21.9 Gastro-esophageal reflux disease without esophagitis; E66.01 Morbid (severe) obesity due to excess calories; J44.9 Chronic obstructive pulmonary disease, unspecified; Z88.8 Allergy status to other drugs, medicaments and biological substances; Z79.899 Other long term (current) drug therapy; Z68.25 Body mass index [BMI] 25.0-25.9, adult; X58.XXXA Exposure to other specified factors, initial encounter
CPT/HCPCS: 27299; 36415; 85027; 97110; 97116; 97162; 97530; A9270; J0690; J2250; J2270; J2704; J3010; J3490; J7120

== ENCOUNTER 2020-03-07 14:46 | Emergency (ER) | payer MEDICARE, BC ==
[2020-03-07] MEDS ORDERED: Metoclopramide 10 MG/2 ML SDV IV ONE (15:32)
[2020-03-07] MEDS ORDERED: fentaNYL 100 MCG/2 ML SDV IVPUSH ONE (15:32)
[2020-03-07] MEDS ORDERED: Sodium Chloride 0.9% 10 ML Syringe FLUSH PRN (15:32)
--- NOTE | 2020-03-07 15:36 | EDM.PDOC ---
ED HPI GENERAL MEDICAL PROBLEM - General Chief Complaint: Back Pain or Injury Stated Complaint: ABD PAIN Time Seen by Provider: 03/07/20 15:20 Source of Information: Reports: Patient - History of Present Illness INITIAL COMMENTS - FREE TEXT/NARRATIVE: 79 year old female present to ER with for evaluation of severe left lower abdomen and back pain. Patient was in a normal state of health this am b efore going to physical therapy. Patient was at physical therapy getting an Ice pack on her lower back/left hip when pain started and has continued to become more severe since got home this am. Patient had left hip surgery mid January with good recovery, per patient. Patient is nauseated unable to eat due to severe pain. Patient unable to give any additional history due to severity of symptoms. Left Back Pain Score (Numeric/FACES): 9 - Related Data Allergies Allergy/AdvReac Type Severity Reaction Status Date / Time iron [From Venofer] Allergy Intermediate Hives Verified 03/07/20 15:04 celecoxib [From Celebrex] AdvReac Nausea and Verified 03/07/20 15:04 Vomiting Home Meds: Home Meds Calcium Carb/Vitamin D3/Vit K1 [Calcium + D Soft Chewable Tab] 1 tab PO BID 07/13/15 [History] Levothyroxine Sodium [Synthroid] 112 mcg PO ACBREAKFAST 07/13/15 [History] Lidocaine 5% 1 applic TOP BID 07/13/15 [History] Magnesium Oxide [Magnesium] 400 mg PO DAILY 07/13/15 [History] Multivitamin [Multi-Day Vitamins] 1 tab PO BID 07/13/15 [History] Vitamin B Complex [B Complex] 1 tab PO DAILY 07/13/15 [History] Pramipexole [Mirapex] 3 mg PO BEDTIME 12/11/15 [History] Docusate Sodium 100 mg PO DAILY 01/22/17 [History] Ibuprofen 400 mg PO Q6H 01/22/17 [History] Polyethylene Glycol 3350 [MiraLAX] 17 gm PO DAILY PRN 01/22/17 [History] traMADol [Ultram] 50 mg PO Q6H PRN 01/22/17 [History] Ergocalciferol (Vitamin D2) [Vitamin D2] 50,000 unit PO .MON Sat09/20/17 [History] Iron,Carbonyl/Ascorbic Acid [Iron 100-Vitamin C Tablet] 1 tab PO BID 09/20/17 [History] Cyclobenzaprine [Flexeril] 10 mg PO TID PRN #20 tab 02/10/20 [Rx] Past Medical History HEENT History: Reports: Cataract, Hard of Hearing, Impaired Vision, Sinusitis Cardiovascular History: Reports: Hypertension Respiratory History: Reports: COPD Gastrointestinal History: Reports: Chronic Constipation Genitourinary History: Reports: Renal Calculus Other Genitourinary History: new diagnosis [employer] History: Reports: Musculoskeletal History: Reports: Arthritis, Back Pain, Chronic, Osteoarthritis Other Musculoskeletal History: Intervertebral disc disorder. s/p L hip scope 02/08/20 Neurological History: Reports: Other (See Below) Other Neuro History: raynaud Psychiatric History: Reports: Anxiety Other Psychiatric History: opioid dependence Endocrine/Metabolic History: Reports: Hypothyroidism Hematologic History: Reports: B12 Deficiency Other Hematologic History: B-complex deficiencies, Postsurgical malabsorption. Vitamin D Oncologic (Cancer) History: Reports: Leukemia Other Oncologic History: CLL Dermatologic History: Reports: Other (See Below) Other Dermatologic History: left ear cyst - Infectious Disease History Infectious Disease History: Reports: Chicken Pox, Measles, Mumps, Shingles - Past Surgical History HEENT Surgical History: Reports: Cataract Surgery, Tonsillectomy Cardiovascular Surgical History: Reports: None GI Surgical History: Reports: Appendectomy, Bariatric Procedure, Colonoscopy, EGD, Esophageal Dilatation Female Surgical History: Reports: Breast Biopsy, Kidney stone extraction, Ureteral Stent Oncologic Surgical History: Reports: None Dermatological Surgical History: Reports: Other (See Below) Social & Family History - Tobacco Use Smoking Status *Q: Former Smoker Used Tobacco, but Quit: Yes Month/Year Tobacco Last Used: february 1990 - Caffeine Use Caffeine Use: Reports: None - Recreational Drug Use Recreational Drug Use: No - Living Situation & Occupation Living situation: Reports: Occupation: Retired ED ROS GENERAL - Review of Systems Review Of Systems: Unable To Obtain (due to severity of pain, unable to answer additional questions) Reason Not Obtained: severity of pain ED EXAM, GI/ABD - Physical Exam Exam: See Below (IV and pain medications ordered) General Appearance: Severe Distress Eyes: Bilateral: Normal Appearance, EOMI Ears: Hearing Loss Nose: Normal Inspection, Normal Mucosa Throat/Mouth: Normal Inspection, Normal Voice. No: Normal Teeth (dentures) Head: Normocephalic Neck: Normal Inspection, Supple Respiratory/Chest: Lungs Clear, Normal Breath Sounds, Other (increased respiratory rate due to pain?) GI/Abdominal Exam: Tender (sever discomfort left mid and lower abdomen w/ CTA tenderness) (Female) Exam: Deferred Rectal (Female) Exam: Deferred Back Exam: CVA Tenderness (L). No: CVA Tenderness (R) Neurological: Alert Psychiatric: Tearful (very uncomfortabel due to pain) Skin Exam: Warm, Dry Course - Vital Signs Last Recorded V/S: Last Vital Signs Temp 36.5 C 03/07/20 14:56 Pulse 107 H 03/07/20 18:35 Resp 18 03/07/20 18:35 BP 189/81 H 03/07/20 18:35 Pulse Ox 96 03/07/20 18:35 - Orders/Labs/Meds Orders: Active Orders 24 hr Category Date Time Status Cardiac Monitoring [RC] .As Directed Care 03/07/20 15:33 Active Peripheral IV Care [RC] . DIRECTED Care 03/07/20 15:33 Active Vital Signs [RC] PFP Care 03/07/20 15:33 Active CULTURE BLOOD [BC] Urgent Lab 03/07/20 18:35 Received CULTURE BLOOD [BC] Urgent Lab 03/07/20 18:38 Received Iopamidol [Isovue-370 (76%)] Med 03/07/20 16:00 Active 92 ml IV . DIRECTED Sodium Chloride 0.9% [Normal Saline] 1,000 ml Med 03/07/20 15:45 Active IV ASDIRECTED Sodium Chloride 0.9% [Normal Saline] 1,000 ml Med 03/07/20 19:30 Ordered IV ASDIRECTED Sodium Chloride 0.9% [Normal Saline] 80 ml Med 03/07/20 16:00 Active IV ASDIRECTED Sodium Chloride 0.9% [Saline Flush] Med 03/07/20 15:32 Active 10 ml FLUSH ASDIRECTED PRN Blood Culture x2 Reflex Set [OM.PC] Urgent Oth 03/07/20 18:32 Ordered Peripheral IV Insertion Adult [OM.PC] Urgent Oth 03/07/20 15:33 Ordered Medication Orders Sodium Chloride (Normal Saline) 1,000 mls @ 250 mls/hr IV ASDIRECTED [facility] Last Admin: 03/07/20 17:28 Dose: 250 mls/hr Documented by: MARGOT Sodium Chloride (Normal Saline) 80 mls @ 3.5 mls/sec IV ASDIRECTED KARELY Last Admin: 03/07/20 16:43 Dose: 3.5 mls/sec Documented by: ABBY Iopamidol (Isovue-370 (76%)) 92 ml IV . DIRECTED KARELY Last Admin: 03/07/20 16:43 Dose: 92 ml Documented by: ABBY Sodium Chloride (Saline Flush) 10 ml FLUSH ASDIRECTED PRN PRN Reason: Keep Vein Open Last Admin: 03/07/20 17:28 Dose: 10 ml Documented by: MARGOT Labs: Laboratory Tests 03/07/20 03/07/20 03/07/20 Range/Units 15:44 15:44 15:44 WBC 26.5 H (4.5-11.0) K/uL RBC 4.39 (3.30-5.50) M/uL Hgb 12.7 D (12.0-15.0) g/dL Hct 42.1 (36.0-48.0) % MCV 96 (80-98) fL MCH 29 (27-31) pg MCHC 30 L (32-36) % Plt Count 211 (150-400) K/uL Neut % (Auto) 44 (36-66) % Lymph % (Auto) 55 H (24-44) % [place] % (Auto) 1 L (2-6) % Eos % (Auto) 0 L (2-4) % Baso % (Auto) 0 (0-1) % Sodium 142 (140-148) mmol/L Potassium 3.9 (3.6-5.2) mmol/L Chloride 105 (100-108) mmol/L Carbon Dioxide 27 (21-32) mmol/L Anion Gap 10.4 (5.0-14.0) mmol/L BUN 15 (7-18) mg/dL Creatinine 1.0 (0.5-1.0) mg/dL Est Cr Clr Drug Dosing 32.23 mL/min Estimated GFR (MDRD) 53 L (>60) Glucose 160 H (74-106) mg/dL Lactic Acid 1.6 (0.4-2.0) mmol/L Calcium 8.6 (8.5-10.1) mg/dL Total Bilirubin (0.2-1.0) mg/dL Direct Bilirubin (0.0-0.2) mg/dL Indirect Bilirubin AST (15-37) U/L ALT (12-78) U/L Alkaline Phosphatase (46-116) U/L C-Reactive Protein 0.07 (0.0-0.3) mg/dL Total Protein (6.4-8.2) g/dL Albumin (3.4-5.0) g/dL Globulin (2.3-3.5) g/dL Albumin/Globulin Ratio (1.2-2.2) Lipase 46 L (73-393) U/L Urine Color (YELLOW) Urine Appearance (CLEAR) Urine pH (5.0-8.0) Ur Specific [place] (1.008-1.030) Urine Protein (NEGATIVE) mg/dL Urine Glucose (UA) (NEGATIVE) mg/dL Urine Ketones (NEGATIVE) mg/dL Urine Occult Blood (NEGATIVE) Urine Nitrite (NEGATIVE) Urine Bilirubin (NEGATIVE) Urine Urobilinogen (0.2-1.0) EU/dL Ur Leukocyte Esterase (NEGATIVE) Urine RBC (0-5) Urine WBC (0-5) Ur Epithelial Cells Amorphous Sediment Urine Bacteria Urine Mucus 03/07/20 03/07/20 Range/Units 15:44 17:55 WBC (4.5-11.0) K/uL RBC (3.30-5.50) M/uL Hgb (12.0-15.0) g/dL Hct (36.0-48.0) % MCV (80-98) fL MCH (27-31) pg MCHC (32-36) % Plt Count (150-400) K/uL Neut % (Auto) (36-66) % Lymph % (Auto) (24-44) % [place] % (Auto) (2-6) % Eos % (Auto) (2-4) % Baso % (Auto) (0-1) % Sodium (140-148) mmol/L Potassium (3.6-5.2) mmol/L Chloride (100-108) mmol/L Carbon Dioxide (21-32) mmol/L Anion Gap (5.0-14.0) mmol/L BUN (7-18) mg/dL Creatinine (0.5-1.0) mg/dL Est Cr Clr Drug Dosing mL/min Estimated GFR (MDRD) (>60) Glucose (74-106) mg/dL Lactic Acid (0.4-2.0) mmol/L Calcium (8.5-10.1) mg/dL Total Bilirubin 0.5 D (0.2-1.0) mg/dL Direct Bilirubin 0.15 (0.0-0.2) mg/dL Indirect Bilirubin 0.35 AST 29 (15-37) U/L ALT 28 (12-78) U/L Alkaline Phosphatase 70 (46-116) U/L C-Reactive Protein (0.0-0.3) mg/dL Total Protein 7.0 (6.4-8.2) g/dL Albumin 3.9 (3.4-5.0) g/dL Globulin 3.1 (2.3-3.5) g/dL Albumin/Globulin Ratio 1.3 (1.2-2.2) Lipase (73-393) U/L Urine Color Yellow (YELLOW) Urine Appearance Cloudy A (CLEAR) Urine pH 6.0 (5.0-8.0) Ur Specific [place] 1.015 (1.008-1.030) Urine Protein Negative (NEGATIVE) mg/dL Urine Glucose (UA) Negative (NEGATIVE) mg/dL Urine Ketones Negative (NEGATIVE) mg/dL Urine Occult Blood Moderate H (NEGATIVE) Urine Nitrite Negative (NEGATIVE) Urine Bilirubin Negative (NEGATIVE) Urine Urobilinogen 0.2 (0.2-1.0) EU/dL Ur Leukocyte Esterase Small H (NEGATIVE) Urine RBC 20-30 H (0-5) Urine WBC 20-30 H (0-5) Ur Epithelial Cells Rare Amorphous Sediment Not seen Urine Bacteria Many Urine Mucus Not seen Meds: Medications Generic Name Dose Route Start Last Admin Trade Name Freq PRN Reason Stop Dose Admin Sodium Chloride 1,000 mls @ 250 mls/hr 03/07/20 15:45 03/07/20 17:28 Normal Saline IV 250 mls/hr ASDIRECTED KARELY Administration Sodium Chloride 80 mls @ 3.5 mls/sec 03/07/20 16:00 03/07/20 16:43 Normal Saline IV 3.5 mls/sec ASDIRECTED KARELY Administration Iopamidol 92 ml 03/07/20 16:00 03/07/20 16:43 Isovue-370 (76%) IV 92 ml . DIRECTED KARELY Administration Sodium Chloride 10 ml 03/07/20 15:32 03/07/20 17:28 Saline Flush FLUSH 10 ml ASDIRECTED PRN Administration Keep Vein Open Discontinued Medications Generic Name Dose Route Start Last Admin Trade Name Freq PRN Reason Stop Dose Admin Fentanyl 50 mcg 03/07/20 15:32 03/07/20 15:43 Sublimaze IVPUSH 03/07/20 15:33 50 mcg ONETIME ONE Administration Hydromorphone HCl 0.5 mg 03/07/20 15:49 03/07/20 15:52 Dilaudid IVPUSH 03/07/20 15:50 0.5 mg ONETIME ONE Administration Hydromorphone HCl 0.5 mg 03/07/20 17:11 03/07/20 17:24 Dilaudid IVPUSH 03/07/20 17:12 0.5 mg ONETIME ONE Administration Hydromorphone HCl 0.5 mg 03/07/20 18:21 03/07/20 18:42 Dilaudid IVPUSH 03/07/20 18:22 0.5 mg ONETIME ONE Administration Ceftriaxone Sodium 1 gm/ 50 mls @ 100 mls/hr 03/07/20 18:30 03/07/20 18:42 Sodium Chloride IV 03/07/20 18:59 100 mls/hr ONETIME ONE Administration Metoclopramide HCl 5 mg 03/07/20 15:32 03/07/20 15:46 Reglan IV 03/07/20 15:33 5 mg ONETIME ONE Administration Sodium Chloride 10 ml 03/07/20 15:59 03/07/20 16:43 Saline Flush FLUSH 03/07/20 16:00 10 ml ONETIME ONE Administration - Re-Assessments/Exams Free Text/Narrative Re-Assessment/Exam: iSTAT requested: Creat 1.0 CTA Abd/Pelvis to be completed ISA. Reviewed prev ious imaging no mention of abdominal aortic aneurysm only calcifications on CT Abd/Pelvis and no mention on US. Different broad includes AAA, ureteral stone, diverticulosis, ischemic bowel or any intraabdominal catastrophe. 03/07/20 15:47 Pain is no better after Fentanyl 50mcg, Dilaudid 0.5 mg ordered to improve pain before Imaging. BP is stable SBP greater than 125. 03/07/20 15:50 Updated patient regarding blood test concerning for infection but h/o CLL with normal WBC 19-21 but today 26. Remaining blood work WNL. Re-dose of Dilaudid x 2 ordered through ER stay one immediately after CT scan and one at this time. Radiology report notes numerous concerning findings causing increased complications. I spoke to hospitalist about admission here but due to numerous CT findings felt CT 03/07/20 18:[address] Cuba GREEN MD regarding patient's presentation and concerning findings for possible left ureteral stone, perisplenic abscess and left iliac crest abscess possible. Acceptance for direct admission. Updated patient. 03/07/20 18:39 Departure - Departure Disposition: DC/Tfer to [facility] Clinical Impression: Abdominal pain, Abscess - Discharge Information Referrals: Antwon Meredith MD [Primary Care Provider] - Forms: ED Department Discharge, Interfacility Transfer EMTALA Sepsis Event Note (ED) - Evaluation Sepsis Screening Result: No Definite Risk - Focused Exam Vital Signs: Vital Signs Temp Pulse Resp BP Pulse Ox 03/07/20 18:35 107 H 18 189/81 H 96 03/07/20 17:05 121 H 20 166/148 H 96 03/07/20 14:56 36.5 C 72 22 H 124/85 89 L - My Orders Last 24 Hours: My Active Orders 03/07/20 15:32 Sodium Chloride 0.9% [Saline Flush] 10 ml FLUSH ASDIRECTED PRN 03/07/20 15:33 Cardiac Monitoring [RC] .As Directed Peripheral IV Care [RC] . DIRECTED Vital Signs [RC] PFP Peripheral IV Insertion Adult [OM.PC] Urgent 03/07/20 15:45 Sodium Chloride 0.9% [Normal Saline] 1,000 ml IV ASDIRECTED 03/07/20 16:00 Iopamidol [Isovue-370 (76%)] 92 ml IV . DIRECTED Sodium Chloride 0.9% [Normal Saline] 80 ml IV ASDIRECTED 03/07/20 18:32 Blood Culture x2 Reflex Set [OM.PC] Urgent 03/07/20 18:35 CULTURE BLOOD [BC] Urgent 03/07/20 18:38 CULTURE BLOOD [BC] Urgent 03/07/20 19:30 Sodium Chloride 0.9% [Normal Saline] 1,000 ml IV ASDIRECTED - Assessment/Plan Last 24 Hours: My Active Orders 03/07/20 15:32 Sodium Chloride 0.9% [Saline Flush] 10 ml FLUSH ASDIRECTED PRN 03/07/20 15:33 Cardiac Monitoring [RC] .As Directed Peripheral IV Care [RC] . DIRECTED Vital Signs [RC] PFP Peripheral IV Insertion Adult [OM.PC] Urgent 03/07/20 15:45 Sodium Chloride 0.9% [Normal Saline] 1,000 ml IV ASDIRECTED 03/07/20 16:00 Iopamidol [Isovue-370 (76%)] 92 ml IV . DIRECTED Sodium Chloride 0.9% [Normal Saline] 80 ml IV ASDIRECTED 03/07/20 18:32 Blood Culture x2 Reflex Set [OM.PC] Urgent 03/07/20 18:35 CULTURE BLOOD [BC] Urgent 03/07/20 18:38 CULTURE BLOOD [BC] Urgent 03/07/20 19:30 Sodium Chloride 0.9% [Normal Saline] 1,000 ml IV ASDIRECTED
[2020-03-07] MEDS ORDERED: Sodium Chloride 0.9% 1,000 ML IV SCH ×2 (15:45→19:30)
[2020-03-07] MEDS ORDERED: HYDROmorphone 0.5 MG/0.5 ML Syringe IVPUSH ONE ×3 (15:49→18:21)
[2020-03-07] MEDS ORDERED: Sodium Chloride 0.9% 10 ML Syringe FLUSH ONE (15:59)
[2020-03-07] MEDS ORDERED: Iopamidol 755 Mg/ML 100 ML Bottle IV SCH (16:00)
[2020-03-07] MEDS ORDERED: Sodium Chloride 0.9% 80 ML IV SCH (16:00)
--- NOTE | 2020-03-07 17:59 | CRLCT ---
INDICATION: Severe abdominal pain. TECHNIQUE: CT abdomen and pelvis angio acquired with 80 cc Isovue 370 IV contrast. COMPARISON: December 11, 2015. FINDINGS: Lower chest: Unremarkable. Liver: Moderate diffuse fatty infiltration. Otherwise unremarkable liver. Gallbladder and bile ducts: Status post cholecystectomy. No biliary dilatation. Pancreas: Unremarkable. No mass or inflammation. Spleen: Numerous small low-attenuation lesions present. These are too small to further characterize. Spleen is normal in size. Adrenal glands: Unremarkable. No nodules. Kidneys: There are 2 stones in the proximal left ureter with the larger stone measuring 7 x 5 mm. The stones are causing moderate hydronephrosis. Two other smaller stones are present in the left renal collecting system. There is a fair amount of left perinephric edema. A 6 cm simple cyst is in the left kidney. A smaller simple cyst is in the right kidney. 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 GI tract otherwise within normal limits in caliber and appearance. Vasculature: Moderate aortic atherosclerosis without aneurysm. Mesenteric arteries are patent. Lymph nodes: No lymphadenopathy. Omentum/Peritoneum/Abdominal Wall: Adjacent to the left iliac crest in the superficial subcutaneous tissues is a fluid collection measuring 6 x 4 x 2 cm with enhanced seen rim as demonstrated on series 5, image 76. No intra-abdominal fluid collection. No intra-abdominal free air. Pelvis: There is nondependent air in the urinary bladder. Bones: No acute findings. IMPRESSION: 1. Moderate aortic atherosclerosis. Otherwise unremarkable angiographic exam. No sign of mesenteric ischemia. 2. Two stones in the proximal left ureter with the larger stone measuring 7 x 5 mm. These are causing moderate hydronephrosis and perinephric edema. 3. Numerous small low-attenuation lesions in the spleen were not present on the prior exam. These are too small to further characterize. Splenic abscesses could have this appearance. 4. Nondependent air in the urinary bladder is presumably secondary to recent instrumentation. Urinary tract infection could also be a source of air. 5. Superficial fluid collection with enhancing rim measuring 6 x 4 x 2 cm is adjacent to the left iliac crest. This is suspicious for abscess. Dictated by Chaka Ryan MD @ 03/07/2020 5:58:34 PM Please note that all CT scans at this facility use dose modulation, iterative reconstruction, and/or weight-based dosing when appropriate to reduce radiation dose to as low as reasonably achievable. Dictated by: Chaka Ryan MD @ 03/07/2020 17:58:42 (Electronically Signed)
[2020-03-07] MEDS ORDERED: cefTRIAXone 1 GM in Sodium Chloride 0.9% 50 ML IV ONE (18:30)
[2020-03-07 18:42] VITALS: BP 189/81; PULSE 107
== END 2020-03-07 19:39 ==
LOC: JP.ED 14:46
DX: L02.211 Cutaneous abscess of abdominal wall (principal); I10 Essential (primary) hypertension; J44.9 Chronic obstructive pulmonary disease, unspecified; M19.90 Unspecified osteoarthritis, unspecified site; E03.9 Hypothyroidism, unspecified; Z79.899 Other long term (current) drug therapy; Z87.891 Personal history of nicotine dependence; Z88.6 Allergy status to analgesic agent
CPT/HCPCS: 36415; 74174; 80048; 80076; 81001; 83605; 83690; 85025; 86140; 87040; 87077; 87186; 96365; 96375; 96376; 99285-25; J0696; J1170; J2765; J3010; J7030; J7050; Q9967

== ENCOUNTER 2022-02-01 08:17 | Day surgery (SDC) | payer MEDICARE, BC ==
[2022-02-01] MEDS ORDERED: Lactated Ringers 1,000 ML IV SCH (08:30)
[2022-02-01] MEDS ORDERED: fentaNYL 100 MCG/2 ML SDV ONE (09:20)
[2022-02-01] MEDS ORDERED: Propofol 200 MG/20 ML SDV ONE ×2 (09:20→10:18)
[2022-02-01 12:59] VITALS: BP 117/47; PULSE 60
== END 2022-02-01 12:50 | disposition home or self-care (01) ==
LOC: JP.SDS 08:17
PROVIDERS: ATTEND Family Medicine
DX: D12.4 Benign neoplasm of descending colon (principal); K64.4 Residual hemorrhoidal skin tags; I10 Essential (primary) hypertension; K21.9 Gastro-esophageal reflux disease without esophagitis; Z88.6 Allergy status to analgesic agent
CPT/HCPCS: 45380; 51798; 88305; J2704; J3010; J7120; U0002

== ENCOUNTER 2022-11-10 10:02 | Emergency (ER) | payer MEDICARE, BC ==
[2022-11-10 11:30] LABS: TROPONIN I HIGH SENSITIVITY 12.4 pg/mL (<=60.3)
[2022-11-10 12:06] VITALS: BP 169/67; PULSE 57
== END 2022-11-10 12:24 | disposition home or self-care (01) ==
LOC: JP.ED 10:02
DX: R07.89 Other chest pain (principal); I10 Essential (primary) hypertension; J44.9 Chronic obstructive pulmonary disease, unspecified; M19.90 Unspecified osteoarthritis, unspecified site; E03.9 Hypothyroidism, unspecified; Z88.8 Allergy status to other drugs, medicaments and biological substances; Z88.1 Allergy status to other antibiotic agents; Z79.899 Other long term (current) drug therapy
CPT/HCPCS: 36415; 80048; 84484; 85025; 85610; 85730; 93005; 93010; 99283; 99285

== ENCOUNTER 2023-03-04 18:43 | Emergency (ER) | payer MEDICARE, BC ==
[2023-03-04 21:01] LABS: BASOPHILS ABSOLUTE AUTO 0.07 K/uL (0.00-0.10); BASOPHILS PERCENT AUTO 0.5 % (0.1-1.3); EOSINOPHILS ABSOLUTE AUTO 0.04 K/uL (0.00-0.40); EOSINOPHILS PERCENT AUTO 0.3 % (0.0-5.4); HEMATOCRIT 32.6 % (34.3-46.0); HEMOGLOBIN 10.7 g/dL (11.2-15.5); IMMATURE GRAN ABSOLUTE AUTO 0.03 K/uL (0.00-0.23); IMMATURE GRAN PERCENT AUTO 0.2 % (0.0-0.7); LYMPHOCYTES ABSOLUTE AUTO 9.22 K/uL (0.8-3.3); LYMPHOCYTES PERCENT AUTO 70.4 % (11.4-47.7); MEAN CORPUSCULAR HEMOGLOBIN 27.5 pg (31.6-35.5); MEAN CORPUSCULAR HGB CONC 32.8 g/dL (31.6-35.5); MEAN CORPUSCULAR VOLUME 83.8 fL (81.4-99.0); MONOCYTES ABSOLUTE AUTO 0.65 K/uL (0.20-0.90); NEUTROPHILS ABSOLUTE AUTO 3.09 K/uL (1.0-7.6); NEUTROPHILS PERCENT AUTO 23.6 % (40.0-78.1); PLATELET COUNT,PLT 153 K/uL (130-375); RED BLOOD CELL COUNT 3.89 M/uL (3.77-5.24); WHITE BLOOD CELL COUNT,WBC 13.1 K/uL (3.2-11.0)
[2023-03-04 21:23] LABS: ALANINE AMINOTRANSFERASE,ALT 22 U/L (12-78); ALBUMIN 3.1 g/dL (3.4-5.0); ALKALINE PHOSPHATASE 55 U/L (46-116); ASPARTATE AMNIOTRANSFERASE,AST 29 U/L (15-37); BILIRUBIN TOTAL 0.4 mg/dL (0.2-1.0); BLOOD UREA NITROGEN,BUN 13 mg/dL (7-18); CALCIUM 8.4 mg/dL (8.5-10.1); CARBON DIOXIDE,CO2 21 mmol/L (21-32); CHLORIDE,CL 105 mmol/L (100-108); CREATININE 0.9 mg/dL (0.6-1.0); EST CRCL DRUG DOSING (CG) 35.74 mL/min; ESTIMATED GFR 63 mL/min (>60); GLUCOSE RANDOM 89 mg/dL (74-106); POTASSIUM,K 3.8 mmol/L (3.6-5.2); PROTEIN TOTAL,TP 6.1 g/dL (6.4-8.2); SODIUM,NA 136 mmol/L (140-148)
[2023-03-04 21:28] LABS: LACTIC ACID 0.5 mmol/L (0.4-2.0)
[2023-03-04 21:29] LABS: ANION GAP 13.8 mmol/L (5.0-14.0)
[2023-03-04 21:40] LABS: LYME AB IgG Positive (Negative); LYME AB IgM Equivocal (Negative)
[2023-03-04 22:47] LABS: APPEARANCE,URINE CLOUDY (CLEAR); BILIRUBIN,URINE NEGATIVE (NEGATIVE); COLOR,URINE YELLOW (YELLOW); GLUCOSE,URINE NEGATIVE (NEGATIVE); KETONES,URINE NEGATIVE (NEGATIVE); LEUKOCYTE ESTERASE,URINE TRACE (NEGATIVE); NITRITE,URINE NEGATIVE (NEGATIVE); OCCULT BLOOD,URINE TRACE-INTACT (NEGATIVE); PROTEIN,URINE TRACE mg/dL (NEGATIVE); UROBILINOGEN,URINE 0.2 EU/dL (0.2-1.0)
[2023-03-04] MEDS ORDERED: Ondansetron 4 MG Tab.DIS PO ONE (22:52)
[2023-03-04 23:15] LABS: AMORPHOUS SEDIMENT,URINE NOT SEEN; BACTERIA,URINE MODERATE; EPITHELIAL CELLS,URINE MODERATE; MUCUS,URINE FEW
[2023-03-04 23:25] VITALS: BP 139/83; PULSE 104
== END 2023-03-04 23:34 | disposition home or self-care (01) ==
LOC: JP.ED 18:43
DX: A69.20 Lyme disease, unspecified (principal); N39.0 Urinary tract infection, site not specified; J44.9 Chronic obstructive pulmonary disease, unspecified; E03.9 Hypothyroidism, unspecified; Z79.899 Other long term (current) drug therapy
CPT/HCPCS: 36415; 80053; 81001; 83605; 85025; 86617; 86618; 87086; 99284; Q0162

== ENCOUNTER 2023-03-06 07:48 | Inpatient (IN) | payer MEDICARE, BC ==
[2023-03-06] MEDS ORDERED: Sodium Chloride 0.9% 10 ML Syringe FLUSH PRN (07:54)
[2023-03-06 08:14] LABS: HEMATOCRIT 34.1 % (34.3-46.0); HEMOGLOBIN 11.1 g/dL (11.2-15.5); MEAN CORPUSCULAR HEMOGLOBIN 26.9 pg (31.6-35.5); MEAN CORPUSCULAR HGB CONC 32.6 g/dL (31.6-35.5); MEAN CORPUSCULAR VOLUME 82.6 fL (81.4-99.0); PLATELET COUNT,PLT 169 K/uL (130-375); RED BLOOD CELL COUNT 4.13 M/uL (3.77-5.24); WHITE BLOOD CELL COUNT,WBC 15.1 K/uL (3.2-11.0)
[2023-03-06 08:23] LABS: BASE EXCESS VENOUS -0.2 mm/L; BICARBONATE,VENOUS 20.6 mmol/L; CARBOXYHEMOGLOBIN 1.5 % (0.0-1.6); O2 SATURATION VENOUS 96.3; OXYHEMOGLOBIN 94.9 %; PCO2 VENOUS 23.3 mm/Hg; PH,VENOUS 7.555 (7.350-7.450); TOTAL HEMOGLOBIN 11.6 g/dL (12.0-16.0)
[2023-03-06 08:39] LABS: A/G RATIO 1.1 (1.2-2.2); ALANINE AMINOTRANSFERASE,ALT 20 U/L (12-78); ALBUMIN 3.3 g/dL (3.4-5.0); ALKALINE PHOSPHATASE 53 U/L (46-116); ASPARTATE AMNIOTRANSFERASE,AST 28 U/L (15-37); BILIRUBIN TOTAL 0.5 mg/dL (0.2-1.0); BLOOD UREA NITROGEN,BUN 11 mg/dL (7-18); CALCIUM 8.4 mg/dL (8.5-10.1); CARBON DIOXIDE,CO2 23 mmol/L (21-32); CHLORIDE,CL 102 mmol/L (100-108); CREATININE 0.9 mg/dL (0.6-1.0); EST CRCL DRUG DOSING (CG) 35.74 mL/min; ESTIMATED GFR 63 mL/min (>60); GLUCOSE RANDOM 126 mg/dL (74-106); POTASSIUM,K 3.3 mmol/L (3.6-5.2); PROTEIN TOTAL,TP 6.4 g/dL (6.4-8.2); SODIUM,NA 136 mmol/L (140-148)
[2023-03-06 08:40] LABS: ANION GAP 14.3 mmol/L (5.0-14.0)
[2023-03-06 08:44] LABS: INR 1.1; PROTHROMBIN TIME 11.5 sec (9.2-10.6); PTT,PARTIAL THROMBOPLSTIN TIME 25.1 sec (21.8-27.3)
[2023-03-06] MEDS ORDERED: Sodium Chloride 0.9% 1,000 ML IV SCH (08:45)
[2023-03-06 08:48] LABS: ATYPICAL LYMPHOCYTES FEW; LYMPHOCYTES ABSOLUTE MAN 9.06 K/uL (0.8-3.3); LYMPHOCYTES PERCENT MAN 60 % (24-44); MONOCYTES ABSOLUTE MAN 0.76 K/uL (0.20-0.90); MONOCYTES PERCENT MAN 5 % (2-6); NEUTROPHILS ABSOLUTE MAN 5.29 K/uL (1.0-7.6); SEG NEUTROPHILS PERCENT MAN 35 % (36-66)
[2023-03-06 08:49] LABS: METHEMOGLOBIN 0 %
[2023-03-06 08:50] LABS: PO2 VENOUS 172 mm/Hg
[2023-03-06] MEDS ORDERED: Sodium Chloride 0.9% 500 ML IV ONE (08:53)
[2023-03-06] MEDS ORDERED: cefTRIAXone 1 GM in Sodium Chloride 0.9% 50 ML IV ONE (09:21)
[2023-03-06] MEDS ORDERED: Magnesium Sulfate/Water 2 GM in Premix Bag 1 BAG IV ONE (09:22)
[2023-03-06] MEDS ORDERED: Melatonin 3 MG Tab PO PRN (11:27)
[2023-03-06] MEDS ORDERED: Ondansetron 4 MG Tab.DIS PO PRN (11:27)
[2023-03-06] MEDS ORDERED: Ondansetron 4 MG/2 ML SDV IV PRN (11:27)
[2023-03-06] MEDS ORDERED: Magnesium Hydroxide 400 MG/5 ML Susp 30 ML Cup PO PRN (11:27)
[2023-03-06] MEDS ORDERED: Sennosides/Docusate Sodium 50-8.6 MG Tab PO PRN (11:27)
[2023-03-06] MEDS ORDERED: Pramipexole 0.5 MG Tab PO PRN (11:46)
[2023-03-06] MEDS: Potassium Chloride 10 MEQ in Premix Bag 1 BAG IV SCH ×4 (12:00→14:36)
[2023-03-06] MEDS: Sodium Chloride 0.9% 1,000 ML IV SCH ×2 (13:06→23:49)
[2023-03-06 14:03] LABS: APPEARANCE,URINE CLEAR (CLEAR); BILIRUBIN,URINE NEGATIVE (NEGATIVE); COLOR,URINE YELLOW (YELLOW); GLUCOSE,URINE NEGATIVE (NEGATIVE); KETONES,URINE 15 mg/dL (NEGATIVE); LEUKOCYTE ESTERASE,URINE NEGATIVE (NEGATIVE); NITRITE,URINE NEGATIVE (NEGATIVE); OCCULT BLOOD,URINE NEGATIVE (NEGATIVE); PROTEIN,URINE 30 mg/dL (NEGATIVE); UROBILINOGEN,URINE 0.2 EU/dL (0.2-1.0)
[2023-03-06 14:08] LABS: RBC,URINE 0-5 (0-5)
[2023-03-06 14:09] LABS: AMORPHOUS SEDIMENT,URINE NOT SEEN; BACTERIA,URINE FEW; EPITHELIAL CELLS,URINE FEW
[2023-03-06 14:10] LABS: MUCUS,URINE RARE
[2023-03-06] MEDS: traMADol 50 MG Tab PO PRN (16:18)
[2023-03-06] MEDS: Magnesium Sulfate/Water 2 GM in Premix Bag 1 BAG IV SCH (17:34)
[2023-03-06] MEDS: Acetaminophen 325 MG Tab PO PRN (17:34)
[2023-03-06] MEDS: Metoprolol Succinate 25 MG Tab.ER PO SCH (21:45)
[2023-03-06] MEDS: Lactobacillus Rhamnosus GG (Probiotic) Cap PO SCH (21:46)
[2023-03-07] MEDS: Magnesium Sulfate/Water 2 GM in Premix Bag 1 BAG IV SCH (00:41)
[2023-03-07] MEDS: traMADol 50 MG Tab PO PRN (00:57)
[2023-03-07] MEDS ORDERED: hydrALAZINE 20 MG/ML SDV ONE (02:32)
[2023-03-07] MEDS: hydrALAZINE 20 MG/ML SDV IVPUSH ONE ×2 (02:35→06:20)
[2023-03-07] MEDS ORDERED: Sodium Chloride 0.9% 1,000 ML IV SCH (02:49)
[2023-03-07 04:48] LABS: HEMATOCRIT 34.1 % (34.3-46.0); MEAN CORPUSCULAR HEMOGLOBIN 27.1 pg (31.6-35.5); MEAN CORPUSCULAR HGB CONC 32.3 g/dL (31.6-35.5); RED BLOOD CELL COUNT 4.06 M/uL (3.77-5.24); WHITE BLOOD CELL COUNT,WBC 13.7 K/uL (3.2-11.0)
[2023-03-07 05:03] LABS: CALCIUM 7.7 mg/dL (8.5-10.1); CREATININE 0.9 mg/dL (0.6-1.0); EST CRCL DRUG DOSING (CG) 35.78 mL/min; POTASSIUM,K 3.7 mmol/L (3.6-5.2)
[2023-03-07 05:18] LABS: ANION GAP 12.7 mmol/L (5.0-14.0)
[2023-03-07] MEDS: HYDROmorphone 0.5 MG/0.5 ML Syringe IVPUSH PRN (05:24)
[2023-03-07] MEDS ORDERED: Acetaminophen 1,000 MG in Premix Bag 1 BAG IV ONE (06:07)
[2023-03-07] MEDS: Levothyroxine 100 MCG Tab PO SCH (08:19)
[2023-03-07] MEDS: Lactobacillus Rhamnosus GG (Probiotic) Cap PO SCH ×2 (08:40→20:22)
[2023-03-07] MEDS: cefTRIAXone 1 GM in Sodium Chloride 0.9% 50 ML IV SCH (10:34)
[2023-03-07] MEDS ORDERED: Iopamidol 755 Mg/ML 100 ML Bottle IV ONE (12:26)
[2023-03-07] MEDS ORDERED: Sodium Chloride 0.9% 75 ML IV SCH (12:30)
[2023-03-07] MEDS ORDERED: Acetaminophen 650 MG Supp RECTAL PRN (15:01)
[2023-03-07] MEDS ORDERED: hydrALAZINE 20 MG/ML SDV IVPUSH ONE (15:18)
[2023-03-07] MEDS ORDERED: atorvaSTATin 20 MG Tab PO ONE (15:42)
[2023-03-07] MEDS ORDERED: Clopidogrel 75 MG Tab PO ONE (15:42)
[2023-03-07] MEDS: Metoprolol Succinate 25 MG Tab.ER PO SCH (20:22)
[2023-03-08] MEDS: HYDROmorphone 0.5 MG/0.5 ML Syringe IVPUSH PRN (01:45)
[2023-03-08 04:56] LABS: HEMATOCRIT 32.2 % (34.3-46.0); HEMOGLOBIN 10.6 g/dL (11.2-15.5); MEAN CORPUSCULAR HEMOGLOBIN 27.1 pg (31.6-35.5); MEAN CORPUSCULAR HGB CONC 32.9 g/dL (31.6-35.5); MEAN CORPUSCULAR VOLUME 82.4 fL (81.4-99.0); RED BLOOD CELL COUNT 3.91 M/uL (3.77-5.24); WHITE BLOOD CELL COUNT,WBC 16.5 K/uL (3.2-11.0)
[2023-03-08 05:22] LABS: CALCIUM 7.4 mg/dL (8.5-10.1); CREATININE 0.7 mg/dL (0.6-1.0)
[2023-03-08] MEDS: Acetaminophen 325 MG Tab PO PRN (07:42)
[2023-03-08] MEDS: Levothyroxine 100 MCG Tab PO SCH (07:42)
[2023-03-08] MEDS: Lactobacillus Rhamnosus GG (Probiotic) Cap PO SCH (08:01)
[2023-03-08] MEDS ORDERED: atorvaSTATin 20 MG Tab PO SCH (09:00)
[2023-03-08] MEDS ORDERED: Clopidogrel 75 MG Tab PO SCH (09:00)
[2023-03-08] MEDS: cefTRIAXone 1 GM in Sodium Chloride 0.9% 50 ML IV SCH (09:02)
[2023-03-08] MEDS: Potassium Chloride 10 MEQ in Premix Bag 1 BAG IV SCH ×4 (09:46→13:05)
[2023-03-08 10:28] VITALS: BP 148/70; PULSE 77
[2023-03-12 23:09] LABS: ANA DIRECT Negative (Negative)
== END 2023-03-08 14:00 | DRG 65 ==
LOC: JP.ED 07:48 → JP.MS 10:49
PROVIDERS: ADMIT Internal Medicine; ATTEND Internal Medicine
DX: I63.512 Cerebral infarction due to unspecified occlusion or stenosis of left middle cerebral artery (principal); C91.10 Chronic lymphocytic leukemia of B-cell type not having achieved remission; I48.92 Unspecified atrial flutter; N39.0 Urinary tract infection, site not specified; G93.40 Encephalopathy, unspecified; E87.3 Alkalosis; Z66 Do not resuscitate; I65.23 Occlusion and stenosis of bilateral carotid arteries; E86.0 Dehydration; K59.09 Other constipation; M19.90 Unspecified osteoarthritis, unspecified site; F41.9 Anxiety disorder, unspecified; Z20.822 Contact with and (suspected) exposure to COVID-19; G93.89 Other specified disorders of brain; I10 Essential (primary) hypertension; R47.1 Dysarthria and anarthria; J44.9 Chronic obstructive pulmonary disease, unspecified; E87.6 Hypokalemia; E03.9 Hypothyroidism, unspecified; Z96.0 Presence of urogenital implants; Z98.1 Arthrodesis status; Z98.890 Other specified postprocedural states; Z88.8 Allergy status to other drugs, medicaments and biological substances; Z91.048 Other nonmedicinal substance allergy status; Z90.49 Acquired absence of other specified parts of digestive tract; Z87.442 Personal history of urinary calculi; Z98.84 Bariatric surgery status; Z79.899 Other long term (current) drug therapy; Z90.89 Acquired absence of other organs; Z79.891 Long term (current) use of opiate analgesic; Z96.82 Presence of neurostimulator
CPT/HCPCS: 36415; 70450; 71045 ×2; 80053; 82140; 82803; 82947; 83605; 83735; 84484; 85025; 85610; 85730; 86140; 87040; 93005; 96361; 96365; 96368; 99285; J0696; J3475; J3490 ×2; J7030; J7040; U0002; 70496; 70496-26; 70498; 70498-26; 80048; 81001; 84132; 85027; 85651; 86038; 92526-GN; 92610-GN; 93010; 97110-GP; 97161-GP; 99223; 99233; 99239; A9270-GY; J0131; J0360; J1170; J3480; Q9967